=== PATIENT | female | born 1970 | race Caucasian/White ===

== ENCOUNTER 2019-03-26 09:37 | Observation (INO) ==
--- NOTE | 2019-03-26 11:00 | Emergency Department Note ---
ED Disposition Clinical Impression: Abscess of skin or subcutaneous tissue, Cellulitis Disposition: Admitted as Observation Condition on Discharge: Good Instructions: GLORIA Nails for Skin Abscess Referrals: Young Garcia MD [Primary Care Provider] - Time of Disposition: 11:17 - Critical Care Critical Care Time: No Attestation: On 03/26/19, the high probability of a clinically significant, sudden or life threatening deterioration of the following system(s) required my full and direct attention, intervention and personal management. The time I documented below is in addition to time spent performing reported procedures but includes the following listed in this critical care notation. Medical Decision Making - Medical Records Medical records reviewed: Yes: I reviewed the patient's medical records. - Keenan Inquiry Pt receiving controlled substance: No Keenan was queried for this patient: No Vital Signs: 03/26/19 10:08 03/26/19 10:35 03/26/19 11:00 Temperature 99.6 F Temperature Source Oral Pulse Rate [Left Radial] 87 78 82 Respiratory Rate 16 17 17 Blood Pressure [Right Arm] 167/101 H 153/92 H 181/101 H Blood Pressure Mean [Right Arm] 123 112 127 Blood Pressure Source [Right Arm] Automatic Cuff Automatic Cuff Automatic Cuff Blood Pressure Position [Right Arm] Sitting Sitting Sitting 02 Sat by Pulse Oximetry 98 98 98 Oxygen Delivery Method Room Air Room Air Room Air - Lab Data Lab results reviewed: Yes: I reviewed the patient's lab results. Orders (Tests/Meds): ED MEDICATIONS Generic Name Dose Route Start Last Admin Trade Name Freq PRN Reason Stop Dose Admin Piperacillin Sod/Tazobactam 100 mls @ 200 mls/hr 03/26/19 11:00 Sod 4.5 gm/ Sodium Chloride IV 04/09/19 10:59 Q6H JACKSON Protocol Discontinued Medications Generic Name Dose Route Start Last Admin Trade Name Freq PRN Reason Stop Dose Admin Hydromorphone HCl 1 mg 03/26/19 10:36 03/26/19 10:50 Dilaudid 2mg/Ml Syringe IV 03/26/19 10:37 1 mg ONCE ONE Administration ORDERS Category Date Time Status CT forearm RT w con Stat Cat Scan 03/26/19 10:34 Ordered CMP [Comprehensive Metabolic Panel] Stat Lab 03/26/19 11:05 Received Complete Blood Count Auto Diff Stat Lab 03/26/19 11:05 Received Wound Culture and Gram Stain Stat Micro 03/26/19 10:25 Received Skin/Abscess/FB HPI - General Chief complaint: Skin/Abscess/Foreign Body Stated complaint: sore on right arm Time Seen by Provider: 03/26/19 10:59 Mode of Arrival: Ambulatory Source of Information: Patient Limitations: No Limitations Description of Symptoms (Recalled from ER Triage Doc. by RN): to ed per pvt car with c/o abscess to rt forearm x 2days pt with hx of IV drug use. c/o nausea, chills. cpta motrin - History of Present Illness MD complaint: abscess/boil - Related Data Home Medications Medication Instructions Recorded Confirmed No Known Home Medications 03/26/19 03/26/19 Allergies Allergy/AdvReac Type Severity Reaction Status Date / Time codeine [CODEINE] Allergy Unknown Verified 03/26/19 10:12 naproxen [From NAPROSYN] Allergy Unknown Verified 03/26/19 10:12 [facility] History - Hepatitis A Screen Drug use history?: Yes High risk sexual behaviors?: No History of sexually transmitted infection?: No Currently employed?: No Childcare worker?: No Do you have indoor plumbing?: Yes Do you have electricity?: Yes Attestation statement:: This patient has been screened for Hepatitis A risk factors. I have reviewed the patient's past medical history: Yes - Social History Smoking Status: Current every day smoker Tobacco Type: cigarettes # Packs/Day (cigarettes): 1 Alcohol Intake: never Substance Use Type: IV drugs Occupational Status: other ROS Obtained: Yes All systems reviewed & no additional complaints - Constitutional Constitutional: Reports chills, Reports fever(s) - Musculoskeletal Musculoskeletal: Reports muscle weakness, Reports muscle aches - Integumentary/Breasts Skin/Breast: Reports redness, Reports boil, Reports skin pain, Reports skin swelling Physical Exam - General General appearance: alert, in no apparent distress - Head Head exam: atraumatic, normocephalic, normal inspection - Eye Eye exam: Present: normal appearance, PERRL, EOMI - ENT ENT exam: Present: normal exam, normal oropharynx, mucous membranes moist, TM's normal bilaterally, normal external ear exam - Neck Neck exam: Present: normal inspection, full ROM, trachea midline. Absent: meningismus, lymphadenopathy - Chest Chest inspection: Present: normal inspection, symmetric chest wall rise. Absent: tenderness - Respiratory Respiratory exam: Present: normal lung sounds bilaterally. Absent: respiratory distress - Cardiovascular Cardiovascular exam: Present: regular rate, normal rhythm. Absent: JVD - Abdominal Exam Abdominal exam: Present: soft, normal bowel sounds. Absent: distention, tenderness, guarding - Extremities Exam Extremities exam: Present: normal inspection, full ROM, normal capillary refill. Absent: calf tenderness - Back Exam Back exam: Present: normal inspection. Absent: tenderness - Neurological Exam Neurological exam: Present: alert, oriented X3 - Psychiatric Psychiatric exam: Present: normal affect, normal mood - Skin Skin exam: Present: warm, dry, intact, erythema, other (massive abscess, fluctuant, dorsum of arm just beyond elbow) - Lymphatic Lymphatic Findings: no adenopathy Procedures - Abscess I/D Site: upper extremity Side (if applicable): right Local Anesthetic: lidocaine 2%, with epi Amount of anesthesia used (mL): 10 Technique: incised with #11 blade Amount of fluid expressed (mL): 60 Irrigation: No Packing used?: plain
[2019-03-26 11:17] LABS: Basophils % 0.2 % (0.1-2.0); Eosinophils # 0.1 K/mm3 (0.0-0.4); Eosinophils % 0.5 % (0.1-12.0); Hematocrit 41.7 % (37.0-47.0); Hemoglobin 13.7 g/dL (12.2-16.2); Lymphocytes # 1.6 K/mm3 (0.7-4.5); Lymphocytes % 12.9 % (10-50); Mean Corpuscular Volume 91.7 fl (81-99); Mean Platelet Volume 7.1 fl (7.4-10.4); Monocytes # 0.7 K/mm3 (0.1-1.0); Monocytes % 5.6 % (1.7-9.3); Neutrophils # 9.9 K/mm3 (1.8-7.8); Neutrophils % 80.7 % (37.0-80.0); Platelet Count 275 K/mm3 (142-424); Red Blood Count 4.55 M/mm3 (4.20-5.40); Red Cell Distribution Width 13.5 % (11.5-17.5); White Blood Count 12.2 K/mm3 (4.8-10.8)
[2019-03-26 11:27] LABS: Albumin/Globulin Ratio 0.5 (1.1-1.8); Anion Gap 11.9 mEq/L (5-15); Bilirubin,Total 0.7 mg/dL (0.2-1.0); Calcium 9.2 mg/dL (8.5-10.1); Globulin 6.2 gm/dl (1.3-3.2); Total Protein,Serum 9.2 gm/dL (6.4-8.2)
--- NOTE | 2019-03-26 14:30 | Pharmacy Consult Notes ---
- Pharmacy Consult Date: 03/26/19 Time: 14:29 Referring provider: DR. BROWNE Reason for Consult:: VANCOMYCIN DOSING Allergies and ADEs:: Allergies Allergy/AdvReac Type Severity Reaction Status Date / Time codeine [CODEINE] Allergy Unknown Verified 03/26/19 10:12 naproxen [From NAPROSYN] Allergy Unknown Verified 03/26/19 10:12 Home Medications:: Home Medications Medication Instructions Recorded Confirmed Type No Known Home Medications 03/26/19 03/26/19 History Height: 1.78 m Weight: 93.894 kg Laboratory Results:: Laboratory Results - last 24 hr 03/26/19 11:05: WBC 12.2 H, RBC 4.55, Hgb 13.7, Hct 41.7, MCV 91.7, MCH 30.2, MCHC 33.0, RDW 13.5, Plt Count 275, MPV 7.1 L, Neut % (Auto) 80.7 H, Lymph % (Auto) 12.9, Winkler % (Auto) 5.6, Eos % (Auto) 0.5, Baso % (Auto) 0.2, Neut # (Auto) 9.9 H, Lymph # (Auto) 1.6, Winkler # (Auto) 0.7, Eos # (Auto) 0.1, Baso # (Auto) 0.0 03/26/19 11:05: Sodium 133 L, Potassium 3.9, Chloride 99, Carbon Dioxide 26, Anion Gap 11.9, BUN 8, Creatinine 0.76, Estimated Creat Clear 133, Estimated GFR 81, Est GFR ( Amer) 98, Glucose 131 H, Calcium 9.2, Total Bilirubin 0.7, AST 183 H, ALT 191 H, Alkaline Phosphatase 167 H, Total Protein 9.2 H, Albumin 3.0 L, Globulin 6.2 H, Albumin/Globulin Ratio 0.5 L Assessment and Plan - Assessment and plan all Dx Assessment and Plan for all problems:: BASED ON PATIENT FACTORS, RECOMMEND VANCOMYCIN 1,500MG IV EVERY 12 HOURS. PHARMACY WILL MONITOR AND ORDER TROUGH LEVEL PRIOR TO FOURTH DOSE. -YAIMA OCAMPO, CHACHAD
--- NOTE | 2019-03-26 15:16 | Pharmacy Consult Notes ---
[facility] Pharmacy VTE Monitoring - Patient Demographics Admission date: 03/26/19 Report Date: 03/26/19 Time: 15:15 Allergies/Adverse Reactions: Patient Allergies codeine [CODEINE] Allergy (Unknown, Verified 03/26/19 10:12) naproxen [From NAPROSYN] Allergy (Unknown, Verified 03/26/19 10:12) Height: 1.78 m Weight: 95.254 kg Patient Problems: Current Active Problems Abscess of skin or subcutaneous tissue (Acute) Cellulitis (Acute) - VTE Risk Labs: VTE Related Lab Results Hgb 13.7 g/dL (12.2-16.2) 03/26/19 11:05 Hct 41.7 % (37.0-47.0) 03/26/19 11:05 Plt Count 275 K/mm3 (142-424) 03/26/19 11:05 BUN 8 mg/dL (7-18) 03/26/19 11:05 Creatinine 0.76 mg/dL (0.55-1.02) 03/26/19 11:05 Estimated Creat Clear 133 mL/min (50-200) 03/26/19 11:05 Was VTE Risk Assessment Performed: Yes VTE Score: 3 VTE Risk Level: Low Risk - Prophylaxis VTE Prophylaxis Ordered?: Yes Types of VTE Prophylaxis: TEDS Knee High Location of Applied Device: Bilateral Lower Extremeties - VTE Diagnosis Confirmed Treatment or plan recommended: Continue Current Treatment
--- NOTE | 2019-03-27 09:15 | Consult Report ---
*Admission Date: 03/26/19 *Reason for consult:: Right arm abscess *History of present illness: Patient is a 48-year-old female with admitted history of IV drug use and hepatitis C. She states that about 4 days ago she began developing a swelling knot on her right forearm. Became progressively severe. She presented to the emergency department yesterday. She was seen and evaluated and underwent limited incision and drainage by the ER physician which did result in some improvement. She still does have some significant pain. She has persistent swelling and induration and surgical consultation was obtained today for more extensive incision and drainage. Review of Systems - Review of Systems Review of systems:: pertinent systems reviewed and negative unless documented below [facility] History Medical History: Reports:: Hypertension Denies:: Cancer, Diabetes Mellitus Type 1, Diabetes Mellitus Type 2, MRSA *Have you ever received a pneumonia vaccine?: No *Have you received a flu vaccine this season?: No Other Medical History: Reports: Anemia Other Surgeries: Yes: Other (cyst removal/abscess I&D) Amputation: No - *Social History Smoking Status: Current every day smoker Tobacco Type: cigarettes # Packs/Day (cigarettes): 1 Alcohol Intake: never Substance Use Type: heroin Last Used Substance: days (ago) *Occupational Status:: other Housing: house Household Members: spouse *Travel in the last 8 weeks: None Family Hx:: Unable to obtain Meds Home Medications Medication Instructions Recorded Confirmed Type No Known Home Medications 03/26/19 03/26/19 History Allergies Allergy/AdvReac Type Severity Reaction Status Date / Time codeine [CODEINE] Allergy Unknown Verified 03/26/19 10:12 naproxen [From NAPROSYN] Allergy Unknown Verified 03/26/19 10:12 Exam Vital signs and Labs for Last 24 Hours: Temp Pulse Resp BP Pulse Ox 98.3 F 57 L 18 178/80 H 99 03/27/19 08:00 03/27/19 08:00 03/27/19 08:00 03/27/19 08:00 03/27/19 08:00 Laboratory Results - last 24 hr 03/26/19 11:05: WBC 12.2 H, RBC 4.55, Hgb 13.7, Hct 41.7, MCV 91.7, MCH 30.2, MCHC 33.0, RDW 13.5, Plt Count 275, MPV 7.1 L, Neut % (Auto) 80.7 H, Lymph % (Auto) 12.9, Calvert % (Auto) 5.6, Eos % (Auto) 0.5, Baso % (Auto) 0.2, Neut # (Auto) 9.9 H, Lymph # (Auto) 1.6, Calvert # (Auto) 0.7, Eos # (Auto) 0.1, Baso # (Auto) 0.0 03/26/19 11:05: Sodium 133 L, Potassium 3.9, Chloride 99, Carbon Dioxide 26, Anion Gap 11.9, BUN 8, Creatinine 0.76, Estimated Creat Clear 133, Estimated GFR 81, Est GFR ( Amer) 98, Glucose 131 H, Calcium 9.2, Total Bilirubin 0.7, AST 183 H, ALT 191 H, Alkaline Phosphatase 167 H, Total Protein 9.2 H, Albumin 3.0 L, Globulin 6.2 H, Albumin/Globulin Ratio 0.5 L I & O for Last 24 hours: Intake & Output 03/24/19 03/25/19 03/26/19 03/27/19 11:59 11:59 11:59 11:59 Intake Total 2525 / 2525 Balance 2525 / 2525 Weight 207 lb 210 lb Microbiology Reports for the Last 24 Hours: Microbiology 03/26/19 10:25 Arm,Right - Abscess Gram Stain - Final - *Routine HEENT Exam Head: Present: normocephalic Eye: Present: EOMI, PERRL ENT: Present: mucous membranes moist - *Routine Neck Exam Present: supple. Absent: lymphadenopathy - *Routine Respiratory Exam Present: CTA bilaterally - *Routine Cardiovascular Exam Present: RRR - *Routine Abdominal Exam Present: soft, normoactive bowel sounds. Absent: tenderness - *Routine Extremities Exam Absent: cyanosis, clubbing, edema Comments: On her right forearm there is an area of significant erythema with induration and some central necrosis with some purulent drainage from incision and drainage site. Neurovascular exam is unremarkable. - *Routine Skin Exam Present: warm. Absent: rash - *Routine Neurological Exam Present: alert, oriented X3 - Detailed Eye Exam Eyelids: Left normal inspection Results - Labs 03/26/19 11:05 03/26/19 11:05 Laboratory Results - last 24 hr 03/26/19 11:05: WBC 12.2 H, RBC 4.55, Hgb 13.7, Hct 41.7, MCV 91.7, MCH 30.2, MCHC 33.0, RDW 13.5, Plt Count 275, MPV 7.1 L, Neut % (Auto) 80.7 H, Lymph % (Auto) 12.9, Calvert % (Auto) 5.6, Eos % (Auto) 0.5, Baso % (Auto) 0.2, Neut # ( Auto) 9.9 H, Lymph # (Auto) 1.6, Calvert # (Auto) 0.7, Eos # (Auto) 0.1, Baso # (Auto) 0.0 03/26/19 11:05: Sodium 133 L, Potassium 3.9, Chloride 99, Carbon Dioxide 26, Anion Gap 11.9, BUN 8, Creatinine 0.76, Estimated Creat Clear 133, Estimated GFR 81, Est GFR ( Amer) 98, Glucose 131 H, Calcium 9.2, Total Bilirubin 0.7, AST 183 H, ALT 191 H, Alkaline Phosphatase 167 H, Total Protein 9.2 H, Albumin 3.0 L, Globulin 6.2 H, Albumin/Globulin Ratio 0.5 L Assessment and Plan - Assessment and plan all Dx Assessment and Plan for all problems:: Plan for emergent incision and drainage and washout of the wound.
[2019-03-27 12:14] LABS: Basophils % 0.4 % (0.1-2.0); Eosinophils # 0.1 K/mm3 (0.0-0.4); Eosinophils % 1.6 % (0.1-12.0); Hematocrit 38.7 % (37.0-47.0); Hemoglobin 12.8 g/dL (12.2-16.2); Lymphocytes % 28.5 % (10-50); Mean Corpuscular HGB Conc 33.1 g/dL (31.8-35.4); Mean Corpuscular Volume 93.3 fl (81-99); Monocytes # 0.5 K/mm3 (0.1-1.0); Monocytes % 6.9 % (1.7-9.3); Neutrophils # 4.3 K/mm3 (1.8-7.8); Neutrophils % 62.7 % (37.0-80.0); Platelet Count 219 K/mm3 (142-424); Red Blood Count 4.15 M/mm3 (4.20-5.40); Red Cell Distribution Width 13.5 % (11.5-17.5); White Blood Count 6.9 K/mm3 (4.8-10.8)
[2019-03-27 12:18] LABS: Anion Gap 12.2 mEq/L (5-15); Calcium 8.7 mg/dL (8.5-10.1)
--- NOTE | 2019-03-27 13:10 | History & Physical Report ---
*Admission Date: 03/26/19 *Chief complaint: Boil on RFA *History of present illness: Patient is sitting up in bed visiting with , reports she is feeling a little better. Dressing to right forearm is clean dry and intact. Dressing was removed wound is draining serosanguineous fluid with packing in place. Gauze was placed over area, awaiting surgery recommendations. 48-year-old female patient admitted to the ER for complaints of abscess to right forearm for 2 days, she is complaining of nausea, chills, and has a history of IV drug use and is hepatitis C positive. In the ER she was evaluated and a limited incision and drainage was performed by the ER physician, and he reported some improvement in that area. While in the ED she did receive IV Zosyn and 1 mg of Dilaudid IV [facility] History Medical History: Reports:: Hypertension Denies:: Cancer, Diabetes Mellitus Type 1, Diabetes Mellitus Type 2, MRSA *Have you ever received a pneumonia vaccine?: No *Have you received a flu vaccine this season?: No Other Medical History: Reports: Anemia Other Surgeries: Yes: Other (cyst removal/abscess I&D) Amputation: No - *Social History Smoking Status: Current every day smoker Tobacco Type: cigarettes # Packs/Day (cigarettes): 1 Alcohol Intake: never Substance Use Type: heroin Last Used Substance: days (ago) *Occupational Status:: other Housing: house Household Members: spouse *Travel in the last 8 weeks: None Family Hx:: Unable to obtain Review of Systems - Constitutional Reports chills, Reports fever(s) - Eyes Denies blind spots, Denies change in vision - ENT Denies difficulty swallowing, Denies nasal obstruction, Denies sore throat - *Cardiovascular Denies chest pain, Denies rapid, pounding, or irregular heartbeat - *Respiratory Denies chest congestion, Denies shortness of breath - *Gastrointestinal Denies abdominal pain, Denies change in stools - *Musculoskeletal Reports muscle weakness - Integumentary/Breasts Reports wounds Comments: Drsg to RFA C/D/I - *Neurologic Denies lack of coordination, Denies tingling/numbness/burning sensations - Psychiatric Denies thoughts of hurting/killing others, Denies thoughts of hurting/killing yourself - Endocrine Denies cold intolerance, Denies heat intolerance - Hematologic/Lymphatic Denies easy bleeding Meds Home Medications Medication Instructions Recorded Confirmed Type No Known Home Medications 03/26/19 03/26/19 History Allergies Allergy/AdvReac Type Severity Reaction Status Date / Time codeine [CODEINE] Allergy Unknown Verified 03/26/19 10:12 naproxen [From NAPROSYN] Allergy Unknown Verified 03/26/19 10:12 Exam Vital signs and Labs for Last 24 Hours: Temp Pulse Resp BP Pulse Ox 98.3 F 57 L 18 178/80 H 99 03/27/19 08:00 03/27/19 08:00 03/27/19 08:00 03/27/19 08:00 03/27/19 08:00 Laboratory Results - last 24 hr 03/27/19 11:04: Sodium 137, Potassium 4.2, Chloride 105, Carbon Dioxide 24, Anion Gap 12.2, BUN 8, Creatinine 0.61, Estimated Creat Clear 168, Estimated GFR 104, Est GFR ( Amer) 126 D, Glucose 96 D, Calcium 8.7 I & O for Last 24 hours: Intake & Output 03/24/19 03/25/19 03/26/19 03/27/19 23:59 23:59 23:59 23:59 Intake Total 480 / 480 2045 / 2045 Balance 480 / 480 2045 / 204 Weight 210 lb 210 lb Microbiology Reports for the Last 24 Hours: Microbiology 03/26/19 10:25 Arm,Right - Abscess Gram Stain - Final 03/26/19 10:25 Arm,Right - Abscess Wound Culture - Preliminary NO GROWTH AFTER 24 HOURS - Constitutional no acute distress, obese - *Routine HEENT Exam Head: Present: normocephalic, atraumatic. Absent: scalp tenderness Eye: Present: EOMI, PERRL, normal accommodation. Absent: conjunctival icterus ENT: Present: mucous membranes moist - *Routine Neck Exam Present: supple, full ROM, trachea midline. Absent: JVD - *Routine Respiratory Exam Present: CTA bilaterally. Absent: accessory muscle use, rales - *Routine Cardiovascular Exam Present: RRR - *Routine Abdominal Exam Present: soft, normoactive bowel sounds. Absent: tenderness, firm - *Routine Extremities Exam Present: full ROM. Absent: cyanosis, calf tenderness - Routine Back/Spine/Pelvis Exam Back/Spine: Present: full ROM. Absent: CVA tenderness, pain with flexion - *Routine Skin Exam Present: lesions Comments: Abcess RFA w/ packing drng serousang fluid, packing intact - *Routine Neurological Exam Present: alert, oriented X3, CN II-XII intact. Absent: pronator drift Assessment and Plan (1) IV drug abuse Current visit: Yes Status: Acute Category: Medical Code(s): F19.10 - Other psychoactive substance abuse, uncomplicated (2) Tobacco abuse Current visit: Yes Status: Acute Category: Medical Code(s): Z72.0 - Tobacco use (3) Abscess of skin or subcutaneous tissue Current visit: Yes Status: Acute Category: Medical Code(s): L02.91 - Cutaneous abscess, unspecified (4) Cellulitis Current visit: Yes Status: Acute Category: Medical Code(s): L03.90 - Cellulitis, unspecified (5) BMI greater than 30 Current visit: Yes Status: Acute Category: Medical - Assessment and plan all Dx Assessment and Plan for all problems:: Rounds per Dr. Garcia, all orders per Dr. Garcia 1. Awaiting Surg recs. 2. Awaiting wound culture
--- NOTE | 2019-03-27 13:29 | Progress Note ---
[facility] Anesthesia Checklist - Patient Identification Patient Identification: Arm Band - Structural Data Admitted From: Inpatient Planned Operative Procedure/s: I&D right arm abscess Consent for Planned Operative Procedure(s) Verified: Yes Verified Documents: Surgical Consent, History and Physical - NPO Status Verified Time NPO: 00:00 - Additional verifications Anesthesia Reactions: No - Airway Assessment C-Spine Mobility Assessed: Yes (mp2) TMJ Mobility Assessed: Yes Dentition: Good Dentition - Neurological Assessment Level of Consciousness: Awake, Alert - Anesthesia Plan Anesthesia Risk discussed: Yes Anesthesia Plan: Verified ASA Class: II Anesthesia Type: General [facility] History I have reviewed the patient's past medical history: Yes Medical History: Reports:: Asthma, Hepatitis (c), Hypertension Denies:: Cancer, Diabetes Mellitus Type 1, Diabetes Mellitus Type 2, MRSA *Have you ever received a pneumonia vaccine?: No *Have you received a flu vaccine this season?: No Other Medical History: Reports: Anemia Other Surgeries: Yes: , Tubal Ligation, Other (cyst removal/abscess I&D) Amputation: No - *Social History Smoking Status: Current every day smoker Tobacco Type: cigarettes # Packs/Day (cigarettes): 1 Alcohol Intake: never Substance Use Type: heroin Last Used Substance: days (ago) *Occupational Status:: other Housing: house Household Members: spouse *Travel in the last 8 weeks: None Family Hx:: Unable to obtain
--- NOTE | 2019-03-27 15:22 | Operative Note ---
Date of procedure: 03/27/19 Pre-op Diagnosis:: Right forearm abscess Post-op Diagnosis:: Same Procedure performed:: Incision and drainage of right forearm abscess with debridement of skin and subcutaneous tissue Surgeon:: Darvin Henry MD FIXTURE RELAMPER:: Eric Arredondo Anesthesia: LMA Estimated blood loss (mL): 5 Clinical Note:: Patient is a 48-year-old female with admitted history of IV drug use and hepatitis C. She states that about 4 days ago she began developing a swelling knot on her right forearm. Became progressively severe. She presented to the emergency department yesterday. She was seen and evaluated and underwent limited incision and drainage by the ER physician which did result in some improvement. She still does have some significant pain. She has persistent swelling and induration and surgical consultation was obtained today for more extensive incision and drainage. Of note, the patient had a similar complex large right upper extremity abscess 2 years ago which required incision and drainage in the operating room by Dr. Arce Operative findings:: He had a subcutaneous abscess pocket which was mostly completely drained. There was a prominent vein in the base of the abscess cavity. Operative note:: Patient was taken the operating room. She was positioned in a supine position. General anesthesia was induced via LMA. Right upper extremity was prepped and draped in the standard surgical fashion. The wound was probed with a hemostat. There was some tunneling proximally and distally. Limited incision was made overlying the region of tunneling and undermining with hemostat. There was prominent vein in the base of the wound. There is minimal amount of residual purulence. Cultures were obtained. Where there was undermining and tunneling inferiorly this was unroofed as well using electrocautery. Wound was probed with a hemostat to check for any loculations or deep tracking of infectious process of which none was noted. Wound was thoroughly irrigated. There was good hemostasis. Local anesthetic was infiltrated. The wound was packed with portion of moistened saline 4 x 4 gauze and covered with clean dry sterile dressing. Condition: stable Disposition: PACU Specimens:: Cultures Complications:: None immediately apparent
--- NOTE | 2019-03-27 15:31 | Progress Note ---
[facility] Anesthesia Record Part II Discharge Time: 15:55 Destination: floor PACU nurse assessment reviewed?: Yes Patient Condition:: Good Anesthesia Complications:: None Swallowing reflex intact?: Yes Cyanosis?: No
--- NOTE | 2019-03-27 15:31 | Progress Note ---
[facility] Anesthesia Record Part I Intake, IV Amount: 500 Estimated blood loss (mL): 0 Urine output (mL): 0 Blood Pressure: 122/67 SaO2: 95 Pulse Rate: 61 Respiratory Rate: 12 Temperature: 97 F Patient is:: Drowsy, Stable Stable to PACU at:: 15:25
--- NOTE | 2019-03-28 08:53 | Discharge Summary ---
General - General Admission date:: 03/26/19 Discharge date: 03/28/19 HPI HPI: Patient is sitting up in bed visiting with , reports she is feeling a little better. Dressing to right forearm is clean dry and intact. Dressing was removed wound is draining serosanguineous fluid with packing in place. Gauze was placed over area, awaiting surgery recommendations. 48-year-old female patient admitted to the ER for complaints of abscess to right forearm for 2 days, she is complaining of nausea, chills, and has a history of IV drug use and is hepatitis C positive. In the ER she was evaluated and a limited incision and drainage was performed by the ER physician, and he reported some improvement in that area. While in the ED she did receive IV Zosyn and 1 mg of Dilaudid IV Hospital Course Hospital Course: pt has improved on iv abx and was seen by surg -tient is a 48-year-old female with admitted history of IV drug use and hepatitis C. She states that about 4 days ago she began developing a swelling knot on her right forearm. Became progressively severe. She presented to the emergency department yesterday. She was seen and evaluated and underwent limited incision and drainage by the ER physician which did result in some improvement. She still does have some significant pain. She has persistent swelling and induration and surgical consultation was obtained today for more extensive incision and drainage ght forearm abscess Post-op Diagnosis:: Same Procedure performed:: Incision and drainage of right forearm abscess with debridement of skin and subcutaneous tissue Surgeon:: Darvin Henry MD ELECTRO OPTICS ENGINEER:: Eric Arredondo Anesthesia: LMA Estimated blood loss (mL): 5 Clinical Note:: Patient is a 48-year-old female with admitted history of IV drug use and hepatitis C. She states that about 4 days ago she began developing a swelling knot on her right forearm. Became progressively severe. She presented to the emergency department yesterday. She was seen and evaluated and underwent limited incision and drainage by the ER physician which did result in some improvement. She still does have some significant pain. She has persistent swelling and induration and surgical consultation was obtained today for more extensive incision and drainage. Of note, the patient had a similar complex large right upper extremity abscess 2 years ago which required incision and drainage in the operating room by Dr. Arce Operative findings:: He had a subcutaneous abscess pocket which was mostly completely drained. There was a prominent vein in the base of the abscess cavity. Operative note:: Patient was taken the operating room. She was positioned in a supine position. General anesthesia was induced via LMA. Right upper extremity was prepped and d raped in the standard surgical fashion. The wound was probed with a hemostat. There was some tunneling proximally and distally. Limited incision was made overlying the region of tunneling and undermining with hemostat. There was prominent vein in the base of the wound. There is minimal amount of residual purulence. Cultures were obtained. Where there was undermining and tunneling inferiorly this was unroofed as well using electrocautery. Wound was probed with a hemostat to check for any loculations or deep tracking of infectious process of which none was noted. Wound was thoroughly irrigated. There was good hemostasis. Local anesthetic was infiltrated. The wound was packed with portion of moistened saline 4 x 4 gauze and covered with clean dry sterile dressing. Condition: stable pt wanting to go home at this time and will follow as op on abx Objective Vital signs: Temp Pulse Resp BP Pulse Ox 97.6 F 82 18 147/93 H 99 03/28/19 04:00 03/28/19 04:00 03/28/19 04:00 03/28/19 04:00 03/28/19 04:00 no acute distress, obese - *Routine HEENT Exam Head: Present: normocephalic Eye: Present: EOMI, PERRL ENT: Present: mucous membranes dry - *Routine Neck Exam Present: full ROM - *Routine Respiratory Exam Absent: respiratory distress - *Routine Cardiovascular Exam Present: RRR - *Routine Extremities Exam Present: full ROM - *Routine Skin Exam Comments: post i/d of rt forearm - *Routine Neurological Exam Present: alert, CN II-XII intact - Routine Psychiatric Exam Present: normal affect Results Labs on day of discharge: Labs from last 24 hours 03/27/19 03/27/19 11:04 11:04 WBC 6.9 D RBC 4.15 L Hgb 12.8 Hct 38.7 MCV 93.3 MCH 30.9 MCHC 33.1 RDW 13.5 Plt Count 219 MPV 8.0 Neut % (Auto) 62.7 Lymph % (Auto) 28.5 [place] % (Auto) 6.9 Eos % (Auto) 1.6 Baso % (Auto) 0.4 Neut # (Auto) 4.3 Lymph # (Auto) 2.0 [place] # (Auto) 0.5 Eos # (Auto) 0.1 Baso # (Auto) 0.0 Sodium 137 Potassium 4.2 Chloride 105 Carbon Dioxide 24 Anion Gap 12.2 BUN 8 Creatinine 0.61 Estimated Creat Clear 168 Estimated GFR 104 Est GFR ( Amer) 126 D Glucose 96 D Calcium 8.7 Preliminary micro results at discharge 03/26/19 10:25 Wound Culture - Preliminary Arm,Right - Abscess NO GROWTH AFTER 24 HOURS DS: Diagnosis - Discharge Diagnosis (1) IV drug abuse Status: Acute (2) Tobacco abuse Status: Acute (3) Abscess of skin or subcutaneous tissue Status: Acute (4) Cellulitis Status: Acute (5) BMI greater than 30 Status: Acute (6) Elevated LFTs Status: Acute Discharge Plan - Patient Discharge Instructions ACTIVITY: Continue current activity DIET: continue same diet Patient Instructions: DI for Cellulitis -- Adult, DI for Skin Abscess - Follow up Plan Disposition: Home, Self-Correction Medications: Home Medications Medication Instructions Recorded Confirmed Type No Known Home Medications 03/26/19 03/26/19 History Sulfamethoxazole/Trimethoprim 1 each PO BID #14 tab 03/28/19 Rx [Bactrim DS tablet] cephALEXin [Keflex 500mg Cap] 500 mg PO TID #30 cap 03/28/19 Rx Prescriptions/Medication Reconciliation: New Sulfamethoxazole/Trimethoprim [Bactrim DS tablet] 1 each PO BID #14 tab cephALEXin [Keflex 500mg Cap] 500 mg PO TID #30 cap No Action No Known Home Medications - Problem Reconciliation Problems Reviewed?: Yes
== END 2019-03-28 09:22 | disposition home or self-care (01) ==
LOC: ER 09:37 → 2ND 12:00 → INTOOBSV 14:29
PROVIDERS: ADMIT Emergency Medicine; ATTEND Emergency Medicine
CPT/HCPCS: 36415; 73201; 80048; 80053; 85025; 87070; 87075; 87077; 87186; 87205; 96365; 96375; 96376; 99285; G0378; J2405; J3370; Q9967; S0077

== ENCOUNTER → 2021-02-25 17:38 | Outpatient (CLI) | payer MEDICAID, SELFPAY ==
[2021-02-25 19:14] LABS: Amphetamine/Metha Screen,Urine Negative ng/ml (<1000)
[2021-02-25 19:15] LABS: Barbiturates Screen,Urine Negative ng/ml (<200); Benzodiazepines Screen,Urine Negative ng/ml (<200)
[2021-02-25 19:16] LABS: Cannabinoid Screen,Urine Positive ng/ml (<50)
[2021-02-25 19:17] LABS: Cocaine Screen,Urine Negative ng/ml (<300); Methadone Screen,Urine Negative ng/ml (<300)
[2021-02-25 19:18] LABS: Phencyclidine Screen,Urine Negative ng/ml (<25)
[2021-02-25 19:19] LABS: Opiate Screen,Urine Negative ng/ml (<300)
== END ==
PROVIDERS: Visit Provider Emergency Medicine
DX: Z79.899 Other long term (current) drug therapy (principal)
CPT/HCPCS: 80305